=== PATIENT | male | born 1955 | race Caucasian/White ===

== ENCOUNTER → 2018-07-13 | Outpatient (REF) | payer OTHER ==
[~2018-07-13] MED LIST: CENTRUM SILVER ULTR1; CRESTOR10 MG PO; EFFEXOR37.5 MG; GLUCOSAMINE COM1 TAB; HYDROCODONE/ACE1 TAB PO; LOSARTAN/HCT1 TA1 PO; MEDDOSEPAK PO; NEUPRO2 MG/24 HR; PERCOCET1 TA4 PO; REQUIP0.5 MG PO; ROPINIROLE5 MG; TRAMADOL HCL50 MG; TRAMADOL HCL50 MG PO; VENLAFAXINE75 MG PO; VOLTAREN1%GEL TOP
[2018-07-13 13:06] VITALS: BP 149/114
[2018-07-13 13:21] LABS: BARBITURATES NEGATIVE (NEGATIVE); COCAINE NEGATIVE (NEGATIVE); METHADONE NEGATIVE (NEGATIVE); OXCYCODONE NEGATIVE (NEGATIVE); TETRAHYDROCANNABIONOL NEGATIVE (NEGATIVE); TRICYLIC ANTIDEPRESSANTS NEGATIVE (NEGATIVE)
== END | disposition home or self-care (01) | DRG 950 ==
LOC: PAIN/MGT 12:50
PROVIDERS: ATTEND Anesthesiology Pain Medicine
DX: Z51.81 Encounter for therapeutic drug level monitoring (principal); Z79.891 Long term (current) use of opiate analgesic

== ENCOUNTER 2018-10-13 06:35 | Day surgery (SDC) | payer OTHER ==
[2018-10-13 09:18] VITALS: BP 130/78
== END 2018-10-13 09:35 | disposition home or self-care (01) | DRG 552 ==
LOC: ORM 06:35
PROVIDERS: ATTEND Anesthesiology Pain Medicine
PROC: 3E0U33Z Introduction of Anti-inflammatory into Joints, Percutaneous Approach (ICD-10-PCS; principal; 2018-10-13)
PROC: 3E0U3BZ Introduction of Anesthetic Agent into Joints, Percutaneous Approach (ICD-10-PCS; 2018-10-13)
DX: M54.5 Low back pain (principal); M46.1 Sacroiliitis, not elsewhere classified